=== PATIENT | male | born 1960 ===

== ENCOUNTER 2017-08-09 22:00 | Inpatient (IN) | payer OTHER ==
[2017-08-10 00:05] LABS: Band 16 % (5-11); Hemoglobin 11.3 g/dL (14.0-18.0); Lymphocytes 4 % (21-51); MDiff Complete? YES; Mean Corpuscular HGB CONC 31.7 g/dL (32.0-36.0); Mean Corpuscular Hemoglobin 27.1 pg (27.0-31.0); Mean Corpuscular Volume 85.8 fl (80.0-94.0); Mean Platelet Volume 8.4 fL (7.4-10.4); Monocytes 1 % (0-10); Neutrophil 79 % (42-75); PLT Morphology Comment Appears Adequate; Platelet Count 134 thou/uL (130-400); RBC Distribution Width 16.3 % (11.5-14.5); Red Blood Cell (RBC) Count 4.17 mill/uL (4.70-6.10); White Blood Cell (WBC) Count 24.8 thou/uL (4.8-10.8)
[2017-08-10 00:18] LABS: CKMB 0.7 ng/mL (0-6.6); Troponin I 0.032 ng/mL (< 0.028)
[2017-08-10 00:38] LABS: Acetaminophen Less than 6.0 mcg/mL (10.0-30.0); Alcohol Less than 10 mg/dL (Less than 10); Salicylate Less than 8.0 mg/dL (15.0-30.0)
[2017-08-10 00:39] LABS: ALT (SGPT) 24 U/L (8-55); AST (SGOT) 27 U/L (5-34); Albumin 2.8 g/dL (3.5-5.0); Alkaline Phosphatase 164 U/L (40-150); Anion Gap 20 mmol/L (10-20); BUN (Urea Nitrogen) 47 mg/dL (8.4-25.7); Calc. Creatinine Clearance 0 mL/min (70-130); Calcium 8.4 mg/dL (7.8-10.44); Carbon Dioxide 22 mmol/L (22-29); Chloride 95 mmol/L (98-107); Estimated GFR-MDRD Greater than 90; Globulin 3.4 g/dL (2.4-3.5); Glucose 133 mg/dL (70-105); Lipase 7 U/L (8-78); Potassium 4.1 mmol/L (3.5-5.1); Protein, Total 6.2 g/dL (6.0-8.3); Sodium 133 mmol/L (136-145)
[2017-08-10] MEDS ORDERED: Aspirin 325 MG TAB ONE (01:21)
[2017-08-10 03:54] LABS: Troponin I 0.037 ng/mL (< 0.028)
[2017-08-10] MEDS ORDERED: Dextrose 50% Abboject 50 ML SYRINGE ONE (04:49)
[2017-08-10] MEDS ORDERED: Sodium Chloride 0.9% 1,000 ML IV SCH (04:56)
[2017-08-10] MEDS ORDERED: Acetaminophen 325 MG TAB PO PRN (04:56)
[2017-08-10 05:10] VITALS: BMI 16.0
[2017-08-10 06:27] LABS: Troponin I 0.037 ng/mL (< 0.028)
--- NOTE | 2017-08-10 07:36 | CT ---
PRELIMINARY REPORT/[facility]/EMERGENCY AFTER HOURS PROCEDURE: EXAM: CT Head Without Intravenous Contrast CLINICAL HISTORY: 57 years old, male; Signs and symptoms; Altered mental status/memory loss; Confusion or disorientatio n; Patient HX: 57 y/o m with presentation of productive cough. Pt reports that he has "burning in my lungs" and has HX of stage 3 lung ca. Records show that pt was sent for AMS, but guards at bedside ar e unable to provide history TECHNIQUE: Axial computed tomography images of the head/brain without intravenous contrast. COMPARISON: No relevant prior studies available. FINDINGS: Brain: Scattered areas of hypoattenuation, likely chronic small vessel ischemic change, demyelination , or gliosis. Encephalomalacia within the right anterior periventricular white matter. Ventricles: Normal. Bones/joints: Normal. No acute fracture. Soft tissues: Normal. Vasculature: Atherosclerotic vascular calcifications. Sinuses: Minimal ethmoid and bilateral maxillary sinus disease. Mastoid air cells: Normal as visualized. No mastoid effusion. IMPRESSION: 1. No acute findings. 2. Non-acute findings are described above. Thank you for allowing us to participate in the care of your patient. Dictated and Authenticated by: Helder Chatterjee MD 08/10/2017 12:22 AM Central Time ([place] & [place]) FINAL REPORT CT OF BRAIN PERFORMED WITHOUT CONTRAST ENHANCEMENT: Date: 08/09/17 HISTORY: Cough. History of lung cancer. Altered mental status. FINDINGS: There is some generalized ventricular and sulcal prominence. There is encephalomalacia change related to an old infarct in the right periventricular white matter. There is also chronic ischemic white ma tter change. There are no signs of intracerebral hemorrhage or extra-axial fluid collections. The mas toid air cells are clear. There is some mucosal change within the ethmoid air cells. IMPRESSION: No acute intracranial abnormalities. POS: [facility]
[2017-08-10 09:03] LABS: Bilirubin Negative (Negative); Blood, Urine Moderate (Negative); Clarity CLEAR (Clear); Glucose, Urine (Dipstick) Negative (Negative); Leukocyte Negative (Negative); Nitrite Negative (Negative); Protein, Urine (Dipstick) Trace mg/dL (Neg-Trace); Specific Gravity, Urine 1.023 (1.002-1.036)
[2017-08-10 09:05] LABS: Bacteria/HPF None Seen HPF (None Seen); Squamous Epithelial 0-3 HPF (0-3); WBC/HPF 0-3 HPF (0-3)
--- NOTE | 2017-08-10 09:22 | RAD ---
PORTABLE AP CHEST: Date: 08/10/17 HISTORY: Productive cough. COMPARISON: None available. FINDINGS: Patient is rotated to the right, which accentuates the mediastinal structures, but there does appear to be mass-like opacity in a left paratracheal location and suprahilar location. The aortic knob is n ot well delineated on this exam. This may be related to patient's known Stage III lung cancer as repo rted by clinical history. There is mild prominent soft tissue density in a right paratracheal locatio n which could be related to lymphadenopathy. There are pleural and parenchymal changes of left lung b ase, which may be related to left pleural effusion and atelectasis. Minimal patchy density is seen in right mid lung zone, which could be related to atelectasis or developing pneumonitis. Cardiac silhou ette is within normal limits. IMPRESSION: 1. Mass-like opacity in left paramediastinal location and in medial aspect left lung apex which may be related to patient's known lung neoplasm as patient has provided history of Stage III lung cancer. No prior studies are available for comparison. Correlation with prior studies would be helpful versu s follow-up CT scan of the thorax. 2. Increased density right paratracheal location, which could be related to lymphadenopathy. 3. Left pleural effusion and atelectasis. 4. Minimal patchy density right mid lung zone which could be related to either atelectasis or pneumo nitis. Follow-up evaluation is suggested. POS: [facility]
[2017-08-10 09:35] LABS: Pathc Cast-AUWi Flag 3.65 (0-2.49)
[2017-08-10] MEDS ORDERED: Senokot 8.6 MG TAB PO PRN (09:35)
[2017-08-10] MEDS ORDERED: Guaifenesin DM 100-10/5 ML UDCUP PO PRN (09:35)
[2017-08-10 09:44] LABS: Hyaline Casts/LPF 0-3 HYALINE CAST LPF (0-3 Hyaline); Manual Microscopic Reviewed? No Path Casts Seen
[2017-08-10] MEDS: Morphine IR 10 MG/5 ML UDCUP PO PRN ×2 (11:10→15:30)
--- NOTE | 2017-08-10 11:55 | CT ---
CT CHEST WITH IV CONTRAST CT ABDOMEN AND PELVIS WITH IV CONTRAST: Date: 08/10/17 HISTORY: Patient with lung cancer. This is for evaluation of metastatic disease. FINDINGS: There is a large hypodense and slightly heterogeneous mass in the left paramediastinal location and i nvolving the left medial aspect of the left upper lobe. This mass measures 11.5 cm craniocaudal x 9.9 cm AP x 6.7 cm transverse. There are multiple low density masses with low density areas centrally in volving circumferentially in a paratracheal location as well as extending into the subcarinal region likely related to necrotic lymph nodes. Conglomeration of lymphadenopathy in the subcarinal region m easures 5.0 cm x 3.9 cm. The largest lymph node in a pretracheal location measures 4.4 cm x 3.5 cm. T here is attenuation of the left main pulmonary artery which traverses through the region of the large left upper lobe mass. There is parenchymal opacity seen within the right upper lobe which is in the right mid lung zone. Fi ndings may be related to postobstructive pneumonitis, although neoplastic process cannot be entirely excluded. There are reticulonodular opacities seen at the right lung base suggesting infectious or in flammatory process. There is a moderately large left pleural effusion identified. There is a pleural based pulmonary nodule seen at the anterior aspect left lung base which measures 2 .0 cm in maximal dimensions. There is an additional small pleural based pulmonary nodule with questio n of focal eccentric calcification which is seen in the anterior aspect of the left lower lobe. Addit ional small pulmonary nodules are also seen in the left upper lobe as well as small pulmonary nodules measuring less than 1.0 cm in the right upper lobe. There is a small, 7.0 mm, pulmonary nodule in th e right lower lobe with additional small pulmonary nodules throughout the right lower lobe including granuloma. There is a compression fracture involving the T5 vertebral body with slight heterogeneous appearance. This could be related to pathological fracture related to metastatic lesion involving the T5 vertebr al body. There is a subtle lucency seen within the superior aspect of the T6 vertebral body which als o may represent a metastatic lesion. CT ABDOMEN AND PELVIS: There is a large necrotic lesion associated with the right adrenal gland which measures 8.0 cm x 5.1 cm, likely related to necrotic metastatic lesion involving the left adrenal gland. There are scattere d hypodense lesions with thin rims of enhancement seen scattered within each lobe of the liver. Large st hypodense mass in the left hepatic lobe measures approximately 3.0 cm. There are low density masses seen in the region of the gastrohepatic ligament likely related to necro tic lymph nodes, largest measuring 2.8 cm. A 2.8 cm hypodense lesion is seen in the lateral aspect mid portion of the left kidney demonstrating fluid attenuation consistent with a cyst. Subcentimeter, too small to characterize, hypodense lesions are seen at each kidney. There is a subtle low density lesion seen within the medial aspect body of the spleen which measures 1.2 cm and may represent a metastatic lesion given additional lymphadenopathy and metastatic disease present. A few mildly prominent retrocrural lymph nodes are also seen, which are likely related to ab normal lymph nodes. There is dense contrast present within the colon, which has the appearance of residual barium. This r esults in significant artifact and limits evaluation and portions of the abdomen and pelvis. Postsurgical changes of the lumbar spine are seen. No obvious lytic or sclerotic osseous lesion is ap preciated involving the lumbar spine or pelvis. Large amount of retained fecal material and gas is seen in the region of the rectum. IMPRESSION: 1. Large left paramediastinal and left upper lobe mass with necrosis which may represent patient's p rimary lung malignancy. There is evidence of necrotic metastatic lymphadenopathy involving the medias tinum and each hilar region, as well as in the region of the gastrohepatic ligament. 2. Bilateral pulmonary nodules and moderately large left pleural effusion with atelectasis. 3. Necrotic metastatic hypodense lesion involving the right adrenal gland with metastatic lesions se en within the liver and spleen. 4. Compression fracture with about 20% loss of height involving the T5 vertebral body, likely relate d to pathological fracture. There is also suggestion of a metastatic lytic lesion within the T6 verte bral body. POS: [facility]
[2017-08-10] MEDS ORDERED: ISOVUE-370 76%-LOCM 1 ML ONE (16:45)
--- NOTE | 2017-08-10 17:08 | HP ---
REASON FOR ADMISSION: Altered mental state. HISTORY OF PRESENT ILLNESS: Please note, the patient was [facility] from [place] for altered mentation there. Currently, the patient is requesting for pain medications. He has known history of stage IV lung cancer with multiple mets. He has had complete workup done at [facility]. He was evaluated by multiple physicians at [facility]. His Hemology/Oncology physician is Dr. Georges Cavazos. Currently, he has no complaints of palpitations or PND, but has shortness of breath. No fever as such now. PAST MEDICAL AND SURGICAL HISTORY: 1. History of lung cancer stage IV, which is non-small cell lung cancer per records accompanying him from the [facility]. 2. Hypertension. He has had endobronchial ultrasound with biopsies done. 3. Hypertension. 4. COPD. 5. History of old CVA. CURRENT MEDICATIONS: The patient is on morphine extended release 30 mg twice daily, nortriptyline 75 mg at bedtime, Phenergan p.r.n., sertraline 100 mg p.o. daily, dexamethasone 2 mg p.o. twice daily, omeprazole 20 mg daily, albuterol nebulizer p.r.n., [place] p.r.n., Colace 100 mg twice daily, and metoprolol 50 mg twice daily. ALLERGIES: No known drug allergies. PERSONAL HISTORY: The patient has smoked 1-1/2 pack daily for 30 years. He does not abuse alcohol or drugs. He is currently in [facility] 6 months. The patient states he ambulates very short distances. FAMILY HISTORY: Father at the age of 76 years. He has had history of lung cancer. Mom of old age. He has two daughters, the names are Marizol and Enriqueta. REVIEW OF SYSTEMS: The following complete review of systems was negative, unless otherwise mentioned in the HPI or below: Constitutional: Weight loss or gain, ability to conduct usual activities. Skin: Rash, itching. Eyes: Double vision, pain. ENT/Mouth: Nose bleeding, neck stiffness, pain, tenderness. Cardiovascular: Palpitations, dyspnea on exertion, orthopnea. Respiratory: Shortness of breath, wheezing, cough, hemoptysis, fever or night sweats. Gastrointestinal: Poor appetite, abdominal pain, heartburn, nausea, vomiting, constipation, or diarrhea. Genitourinary: Urgency, frequency, dysuria, nocturia. Musculoskeletal: Pain, swelling. Neurologic/Psychiatric: Anxiety, depression. Allergy/Immunologic: Skin rash, bleeding tendency. PHYSICAL EXAMINATION: GENERAL: The patient is a cachectic 57-year-old male, who is currently in mild respiratory distress. VITAL SIGNS: Blood pressure 100/66, pulse 84 per minute, respiratory rate 22 per minute, temperature 97.9 degrees Fahrenheit, saturating 91% on room air. NECK: Supple, no elevated JVD. HEENT: Eyes: Extraocular muscles intact. Pupils are reacting to light. Oral cavity: Mucous membranes are dry. No exudates or congestion. CARDIOVASCULAR: S1, S2 heard. Regular rhythm. RESPIRATORY: Air entry 1+ bilateral. Scattered rhonchi plus bilateral. ABDOMEN: Soft, bowel sounds heard. No tenderness, rigidity or guarding. EXTREMITIES: No peripheral edema or calf tenderness. VASCULAR SYSTEM: Peripheral pulses 1+ bilateral. No ischemic ulcerations or gangrene. CENTRAL NERVOUS SYSTEM: No gross focal deficits seen. The patient is awake and oriented well. PSYCHIATRIC: The patient's mood is euthymic. No hallucinations or delusions. LABORATORY AND X-RAY FINDINGS: White count of 24, hemoglobin and hematocrit 11 and 35, platelet count 134 with 79% neutrophils, 16% bands, and MCV is 85. Sodium 133, serum bicarbonate is 22, BUN 47, creatinine 0.8, glucose 133, and alkaline phosphatase 164. Troponin I is indeterminate, peaking up to 0.03. CK- MB 0.7, albumin 2.8, TSH 2.14, and lipase is 7. CT chest, abdomen and pelvis with IV contrast done showed large left paramediastinal and left upper lobe mass with necrosis, likely his primary lung malignancy. There was evidence of necrotic metastatic lymphadenopathy involving the mediastinum and each hilar region as well as in the region of the gastrohepatic ligament. There is bilateral pulmonary nodules and moderately large left pleural effusion with atelectasis, necrotic metastatic hyperdense lesions involving the right adrenal gland with metastatic lesions seen within the liver and spleen, compression fracture with about 20% loss of height involving the T5 vertebral body likely pathological fracture. There is also metastatic lytic lesion seen in T6 vertebral body. CT brain without contrast done showed no acute findings. There was encephalomalacia related to old infarct in the right periventricular white matter. CLINICAL IMPRESSION AND PLAN: The patient has what appears to be stage IV lung cancer, which is again non-small cell lung cancer per records accompanying [facility]. He was transferred here for altered mental state and the patient's prognosis is very poor given his poor physical condition as well. He was evaluated by Dr. Mercedes for Pulmonology here. The patient is currently back to his baseline cognitive state. He has metastatic lung cancer and likely is not a candidate even for palliative chemo given his cachexia and poor oral intake. He also appears to have vocal cord involvement with a husky voice and difficulty keeping down his oral secretions as well. All of this was discussed with the patient. He clearly knows his prognosis is poor. He is wanting comfort care. The patient will be shortly discharged back to [facility]. He is already on morphine, steroids and nebulizers at the [facility] and will continue the same for now. I have tried to reach out to his children, Ms. Fontana and Enriqueta; I was unable to reach either one. The numbers to reach them is for Ms. Fontana is [phone] and for Ms. Robison is [phone]. Again, I was unable to reach either one of them. This will be a same day admit and discharge summary. [facility]
--- NOTE | 2017-08-10 20:07 | CON ---
DATE OF CONSULTATION: 08/10/2017 Popeye Cowan is a 57-year-old cachectic gentleman from the [facility] system, unable t o give much history. He came with acute mental status change for several days. CAT scan of his chest, abdomen was done last night, this morning which shows extensive stage IV metas tatic CA. His CT of the head was done last night which did not show any acute changes, but his chest x-ray shows yesterday mass-like opacity in the left mediastinal location along apex, all consistent with his previous metastatic disease. This morning, he is hoarse, not able to give more history, cachectic. There are 2 [facility] guards at the bedside. Reviewing his medical records from the [facility] system inclu ben hematuria, depression, hypertension, COPD, lung cancer. MEDICATIONS: Medicines from the [facility] system includes metoprolol 25 two a day, Zoloft 50, Tylenol N o. 3, albuterol, morphine, nortriptyline, sertraline, dexamethasone. SOCIAL AND FAMILY HISTORY: Unobtainable. He is unable to communicate. REVIEW OF SYSTEMS: Not able to communicate. He has no medical records in this hospital none to revi ew. PHYSICAL EXAMINATION: VITAL SIGNS: Sats are 91% on room air. Temperature 98, blood pressure 170/78. CHEST: Decreased breath sounds without any wheezing. CARDIAC: Normal S1, S2. ABDOMEN: Soft, no masses. LABORATORY DATA: Sodium 133, troponin is slightly elevated. White count 09242, H and H 11 and 35, p latelet count 135. IMPRESSION: 1. Stage IV metastatic cancer, left pleural effusion. 2. Cachexia. 3. Leukocytosis. The patient is FULL CODE, very hesitant to intubate the gentleman, did get information from the [employer] members, [employer] system upon making him a DNR, considering his extensive lung cancer history. It is unclear whether he has been treated. We need to get all records if possible. admitting doctor . This is a consultation note, 70 minutes of which 50% of the time was spent in direct patient care.
[2017-08-10] MEDS ORDERED: Famotidine 20 MG TAB PO SCH (21:00)
[2017-08-10] MEDS ORDERED: Nortriptyline HCl 25 MG CAP PO SCH (21:00)
[2017-08-10] MEDS ORDERED: Morphine ER 30 MG TAB PO SCH (21:00)
[2017-08-10 22:56] VITALS: BP 123/76; TEMP 97.6
[2017-08-11] MEDS ORDERED: Enoxaparin Sodium 40 MG/0.4 ML SYRINGE SC SCH (09:00)
== END 2017-08-10 23:00 | DRG 948 ==
LOC: ERS 22:00 → T4-A 08-10 04:41
PROVIDERS: ADMIT Internal Medicine; ATTEND Internal Medicine
DX: R41.82 Altered mental status, unspecified (principal); J91.0 Malignant pleural effusion; R64 Cachexia; C34.90 Malignant neoplasm of unspecified part of unspecified bronchus or lung; J44.9 Chronic obstructive pulmonary disease, unspecified; I10 Essential (primary) hypertension; Z86.73 Personal history of transient ischemic attack (TIA), and cerebral infarction without residual deficits
CPT/HCPCS: 36415; 70450; 71045; 71260; 74177; 80053; 80307; 81003; 81015; 82553; 83690; 84443; 84484; 85025; 87040; 87086; 87804; 93005; 94640; 94760; 96365; J1956; J2920; J7620